=== PATIENT | female | born 1995 | race Two or more races ===

== ENCOUNTER 2017-09-16 12:10 | Observation (INO) | payer MEDICAID | END 2017-09-16 13:25 | disposition home or self-care (01) | DRG 566 | LOC: LDRP 12:10 | PROVIDERS: ADMIT Obstetrics & Gynecology; ATTEND Obstetrics & Gynecology | DX: O36.8120 Decreased fetal movements, second trimester, not applicable or unspecified (principal); Z3A.26 26 weeks gestation of pregnancy | CPT/HCPCS: 59025; 81002; G0378 ==